=== PATIENT | female | born 1950 | race Hispanic/Latino ===

== ENCOUNTER → 2018-01-21 | Outpatient (CLI) | payer MEDICARE ==
[~2018-01-21] MED LIST: ASPIRIN LOW DOS81 MG PO; TRAMADOL HCL50 MG PO; TRAMADOL100 MG; Z.0.GLIPIZIDE ER5 MG PO; Z.0.MELOXICAM15 MG PO; Z.0.METOPROLOL TART5 PO; Z.0.MICARDIS80 MG PO; Z.0.PANTOPRAZOLE SO4 PO; Z.0.SIMVASTATIN20 MG PO; Z.2.METFORMIN HCL500 PO
== END ==
LOC: MAMMO 08:53
PROVIDERS: ATTEND Family Medicine
DX: Z12.31 Encounter for screening mammogram for malignant neoplasm of breast (principal)
CPT/HCPCS: 77067

== ENCOUNTER → 2019-02-01 | Outpatient (CLI) | payer MEDICARE ==
--- NOTE | 2019-02-09 09:29 | Diagnostic Imaging Report ---
#[id number] - [id number] #BILATERAL DIGITAL SCREENING MAMMOGRAM WITH CAD: 02/01/2019 CLINICAL: Routine screening. Comparison is made to exam dated: 01/21/2018 mammogram - [facility]. Current study contains 5 films. The tissue of both breasts is predominantly fatty. Current study was also evaluated with a Computer Aided Detection (CAD) system. Benign calcification is present in the right breast. There is a benign node in the right breast. No significant masses, calcifications, or other findings are seen in either breast. IMPRESSION: BENIGN There is no mammographic evidence of malignancy. A 1 year screening mammogram is recommended. The patient will be notified by letter of the results. MODE LOCKHART M.D. ct/penrad:02/05/2019 12:37:48 Supervisor Grounds: Mounika BOUDREAUX)(Azam), [facility] letter sent: Normal Exam Mammogram BI-RADS: 2 Benign
== END ==
LOC: MAMMO 08:12
PROVIDERS: ATTEND Family Medicine
DX: Z12.31 Encounter for screening mammogram for malignant neoplasm of breast (principal)
CPT/HCPCS: 77067

== ENCOUNTER → 2020-01-27 | Outpatient (CLI) | payer MEDICARE | LOC: MAMMO 09:39 | PROVIDERS: ATTEND Family Medicine | DX: Z12.31 Encounter for screening mammogram for malignant neoplasm of breast (principal) | CPT/HCPCS: 77067 ==

== ENCOUNTER → 2020-11-01 | Outpatient (CLI) | payer MEDICARE | LOC: US 08:21 | PROVIDERS: ATTEND Internal Medicine Gastroenterology | DX: R10.9 Unspecified abdominal pain (principal) | CPT/HCPCS: 76700 ==

== ENCOUNTER → 2021-03-22 | Outpatient (CLI) | payer MEDICARE | LOC: MAMMO 12:15 | PROVIDERS: ATTEND Family Medicine | DX: Z12.31 Encounter for screening mammogram for malignant neoplasm of breast (principal) | CPT/HCPCS: 77067 ==

== ENCOUNTER → 2022-03-25 | Outpatient (CLI) | payer MEDICARE | LOC: MAMMO 11:49 | PROVIDERS: ATTEND Family Medicine | DX: Z12.31 Encounter for screening mammogram for malignant neoplasm of breast (principal) | CPT/HCPCS: 77067 ==